=== PATIENT | female | born 1960 | race Caucasian/White ===

== ENCOUNTER → 2017-04-19 | Outpatient (CLI) | payer OTHER | LOC: FIMAGING 07:31 | DX: Z12.31 Encounter for screening mammogram for malignant neoplasm of breast (principal); Z80.3 Family history of malignant neoplasm of breast | CPT/HCPCS: G0202 ==

== ENCOUNTER 2018-01-13 08:18 | Emergency (ER) | payer OTHER ==
--- NOTE | 2018-01-13 09:02 | EDPHY ---
H & P Time Seen by Provider: 01/13/18 08:42 HPI/ROS: CHIEF COMPLAINT: Left leg pain HISTORY OF PRESENT ILLNESS: Patient is a 57-year-old female with previous DVT who presents emergency department left leg pain. Patient had a DVT roughly 10 years ago. She felt this may have been related to a calf rupture. She was on Coumadin for 9 months. She has been off Coumadin for roughly 10 years. Patient states she developed left lateral/posterior leg pain yesterday. It feels similar to previous clot. She has minimal leg swelling. No recent trauma. No fevers or chills. No chest pain or shortness of breath. REVIEW OF SYSTEMS: My complete review of systems is negative except as mentioned in the HPI. Past Medical/Surgical History: Includes DVT Smoking Status: Never smoked Physical Exam: GENERAL: Well-appearing, in no acute distress, alert. HEENT: Eyes normal to inspection, normal pharynx, no signs of dehydration. NECK: No thyromegaly, no lymphadenopathy, supple. RESPIRATORY: Clear to auscultation bilaterally, no rales, rhonchi or wheezing. CVS: Regular rate and rhythm, no rubs, murmurs, or gallops. ABDOMEN: Soft, nontender, nondistended, no organomegaly. BACK: Normal to inspection, no CVA tenderness. SKIN: Normal color, no rash, warm, dry. No pallor. EXTREMITIES: No pedal edema, no calf tenderness, no Homans sign or cords, no joint swelling. Patient's leg appears normal. NEURO/PSYCH: Alert and oriented x3, normal mood and affect, normal motor sensory exam. Constitutional: Initial Vital Signs Temperature (C) 36.6 C 01/13/18 08:24 Heart Rate 58 L 01/13/18 08:24 Respiratory Rate 18 01/13/18 08:24 Blood Pressure 103/74 01/13/18 08:24 O2 Sat (%) 96 01/13/18 08:24 O2 Delivery Mode Room Air Allergies/Adverse Reactions: No Known Allergies Allergy (Verified 01/13/18 08:22) Home Medications: Medication Instructions Recorded Hrt 01/13/18 Medical Decision Making - Diagnostics Imaging Results: Imaging Impressions Extremity Venous Study 01/13/18 08:53 Impression: No deep venous thrombosis left leg. Results called to Dr. Nanda Peterson at 9:45 AM ED Course/Re-evaluation: In the emergency department I met the patient on arrival. I discussed possible etiologies. An ultrasound of the left lower extremity was ordered. Left left lower extremity ultrasound: Please refer the dictated report by Dr. Reilly. No acute disease noted. I discussed the results with the patient. I answered all her questions. She is aware she needs recheck if she has increasing pain or swelling. I discussed the limitations of ultrasound imaging thus far. She is given follow-up with primary care physician. Differential Diagnosis: My differential includes but is not limited to DVT, PE, muscle strain, arterial occlusion Departure - Departure Disposition: Home, Routine, Self-Care Clinical Impression: Leg pain, left Condition: Good Instructions: Leg Pain (ED) Additional Instructions: Return with increasing leg pain, swelling, fever, chest pain or shortness of breath. Your initial ultrasound was negative. Referrals: Teressa Lepe MD [Primary Care Provider] - 2-3 days, if not improved
[2018-01-13 10:19] VITALS: BP 112/66
== END 2018-01-13 10:19 | disposition home or self-care (01) ==
DX: M79.605 Pain in left leg (principal)

== ENCOUNTER → 2018-06-01 | Outpatient (CLI) | payer OTHER | LOC: FIMAGING 14:07 | PROVIDERS: ATTEND Nurse Practitioner Women's Health | DX: Z12.31 Encounter for screening mammogram for malignant neoplasm of breast (principal); Z80.3 Family history of malignant neoplasm of breast ==